=== PATIENT | female | born 1945 | race Caucasian/White ===

== ENCOUNTER 2016-12-12 02:12 | Emergency (ER) | payer OTHER, BC ==
[2016-12-12] MEDS ORDERED: diazePAM 5 MG TABLET PO ONE (03:35)
[2016-12-12] MEDS ORDERED: ONDANSETRON 4 MG/2 ML VIAL IVPB ONE (03:38)
[2016-12-12] MEDS ORDERED: FAMOTIDINE 20 MG/50 ML IVPB 50 ML IVPB ONE ×2 (03:38→03:51)
[2016-12-12] MEDS ORDERED: SODIUM CHLORIDE 1,000 ML IV STA (03:38)
--- NOTE | 2016-12-12 03:42 | PDOC ---
History of Present Illness <Nhan Villegas - Last Filed: 12/12/16 05:00> - General History Source: Patient Exam Limitations: No Limitations - History of Present Illness Initial Comments: 12/12/16 03:48 The patient is a 70 year old female with significant past medical history of hyperlipidemia who presents to the ED with 1 week of increasing right upper premolar pain. Patient had a dental procedure done about 1 week ago involving dental implant. She reports increasing pain to the right upper premolar, which she has been taking numerous ibuprofen and aleve for with minimal improvement. She has complaints of epigastric burning, nausea and indigestion that resulted in lack of appetite. Patient has an appointment with her dentist at 10:30 in the morning today. Patient also has complaints of back pain and chest wall pain that has been persistent for the past 2 weeks and is worsen upon deep inspiration. The patient denies fever, chills, cough, diaphoresis, lightheadedness, SOB, vomiting, and diarrhea. Allergies: NKDA Social History: No alcohol, tobacco, or drug use reported. Past Surgical History: None reported PCP: Dr. Litzy Zuluaga <Simona Rosa - Last Filed: 12/12/16 05:04> - General Stated Complaint: TOOTHACHE/BACK PAIN Time Seen by Provider: 12/12/16 03:33 Past History - Past Medical History Anemia: No Asthma: No Cancer: No Cardiac Disorders: No CVA: No COPD: No CHF: No Dementia: No Diabetes: No GI Disorders: Yes (CONSTIPATION, HEMORRHOIDS, REDUNDANT COLON) Disorders: No HTN: No Hypercholesterolemia: Yes Liver Disease: No Seizures: No Thyroid Disease: No - Surgical History Abdominal Surgery: No Appendectomy: No Cardiac Surgery: No Cholecystectomy: No Lung Surgery: No Neurologic Surgery: No Orthopedic Surgery: No - Immunization History Immunization Up to Date: Yes - Psycho/Social/Smoking Cessation Hx Anxiety: No Suicidal Ideation: No Smoking History: Never smoked Have you smoked in the past 12 months: No Number of Cigarettes Smoked Daily: 0 If you are a former smoker, when did you quit?: 50 YRS AGO Hx Alcohol Use: No Drug/Substance Use Hx: No Substance Use Type: None Hx Substance Use Treatment: No <Nhan Villegas - Last Filed: 12/12/16 05:00> <Simona Rosa - Last Filed: 12/12/16 05:04> - Past Medical History Allergies/Adverse Reactions: Allergies Allergy/AdvReac Type Severity Reaction Status Date / Time No Known Allergies Allergy Verified 08/06/15 22:05 Home Medications: Ambulatory Orders Atorvastatin Ca [Lipitor] 20 mg PO HS 11/23/14 Oxycodone HCl/Acetaminophen [Percocet 5-325 mg Tablet] 1 - 2 tab PO Q6H #20 tablet 08/07/15 Famotidine [Pepcid] 20 mg PO DAILY #7 tablet 12/12/16 Review of Systems - Review of Systems Able to Perform ROS?: Yes Comments:: 12/12/16 03:48 +lack of appetite, right upper premolar pain, epigastric burning, nausea, indigestion, chest wall pain, back pain Absent: fever, chills, cough, diaphoresis, lightheadedness, SOB, vomiting, and diarrhea. <Simona Rosa - Last Filed: 12/12/16 05:04> *Physical Exam - Physical Exam General Appearance: Yes: Nourished, Appropriately Dressed. No: Apparent Distress HEENT: positive: Normal ENT Inspection, Other (NO EVIDENCE OF ABCSESS) Neck: positive: Supple. negative: Tender, Carotid bruit Respiratory/Chest: positive: Chest Tender (AT PALPATION AND AP COMPRESSION), Lungs Clear, Normal Breath Sounds. negative: Respiratory Distress Cardiovascular: positive: Regular Rhythm, Regular Rate Gastrointestinal/Abdominal: positive: Normal Bowel Sounds, Soft. negative: Tender Integumentary: positive: Normal Color. negative: Rash Neurologic: positive: Fully Oriented, Alert, Normal Mood/Affect, Normal Response , Motor Strength 5/5 <Nhan Villegas - Last Filed: 12/12/16 05:00> ED Treatment Course - RADIOLOGY Radiology Studies Ordered: Category Date Time Status CHEST PA & LAT [RAD] Stat Radiology 12/12/16 03:37 Ordered <Nhan Villegas - Last Filed: 12/12/16 05:00> Medical Decision Making - Medical Decision Making 12/12/16 03:41 LIKELY M/S PAIN OVER USE OF NSAID'S>GASTRITIS DENTAL PAIN MUSCLE RELAXANT/PEPCID AND ZOFRAN/ CXR REASSESS 12/12/16 05:00 NORMAL CHEST FEELS BETTER AFTER MEDS WILL D/C ON MUSCLE RELAXANT/PEPCID/FOLLOW UP DDS TODAY <Nhan Villegas - Last Filed: 12/12/16 05:00> *DC/Admit/Observation/Transfer <Nhan Villegas - Last Filed: 12/12/16 05:00> - Attestations Scribe Attestion: 12/12/16 03:48 Documentation prepared by Simona Rosa, acting as director of medical education for Nhan Villegas MD <Simona Rosa - Last Filed: 12/12/16 05:04> Diagnosis at time of Disposition: Chest wall pain, Dyspepsia, Tooth pain - Discharge Dispostion Disposition: HOME - Prescriptions Prescriptions: Famotidine [Pepcid] 20 mg PO DAILY #7 tablet - Referrals Referrals: Litzy Zuluaga MD [Primary Care Provider] - Call tomorrow - Patient Instructions Additional Instructions: TAKE MEDICATIONS PRESCRIBED DO NOT TAKE ANY PAIN MEDICINE OTHER THAN TYLENOL PLENTY OF FLUIDS (WATER/GATORADE) BLAND DIET, ADVANCE TOLERATED EAT FREQUENT, SMALL MEALS THROUGHOUT THE DAY MAALOX, 30 ml 1/2 HOUR AFTER MEALS AND AT BED TIME RETURN IF FEVER, VOMITING, SEVERE PAIN
[2016-12-12] MEDS ORDERED: diazePAM 5 MG TABLET ONE (03:50)
[2016-12-12] MEDS ORDERED: ONDANSETRON 4 MG/2 ML VIAL ONE (03:52)
[2016-12-12 04:18] VITALS: BP 124/78; PULSE 78; TEMP 97.8; BMI 20.3
== END 2016-12-12 05:16 | disposition home or self-care (01) ==
LOC: JER 02:12
PROC: 3E033GC Introduction of Other Therapeutic Substance into Peripheral Vein, Percutaneous Approach (ICD-10-PCS; principal; 2016-12-12)
DX: R07.89 Other chest pain (principal); R10.13 Epigastric pain; K08.89 Other specified disorders of teeth and supporting structures
CPT/HCPCS: 71020-TC; 96365; 96375; 99281-25

== ENCOUNTER 2016-12-13 05:08 | Observation (INO) | payer OTHER, BC ==
[2016-12-13 05:24] VITALS: BMI 20.2
--- NOTE | 2016-12-13 06:12 | PDOC ---
[id number]: No Limitations - History of Present Illness Initial Comments: 12/13/16 06:13 The patient is a 70 year old female with past medical history of hyperlipidemia who presents to the ED with complaints of chest pain that began this morning. The patient states that she was seen in the ED last night for a toothache that she was having for three weeks for which she was taking clindamycin for. She was discharged home on flexeril and to follow up with her dentist. This morning , the patient woke up this morning and took her medications. Shortly after she began to experience a central chest tightness as well as back pain. She qualifies the pain as an ache between her shoulders. She denies any shortness of breath, lightheadedness, syncope, or blurred vision. She denies taking any aspirin after the onset of symptoms. She denies any recent illness, fever, chills, nausea, vomiting, diarrhea, cough, urinary symptoms. The patient adds that she has hx of heart disease on her mothers side. PCP: Litzy Lau <Ruchi Burt - Last Filed: 12/13/16 06:16> - History of Present Illness Initial Comments: 12/13/16 07:04 This is a 69yo F with chest pain that started this morning after taking medications for toothache. She reports a LEFT/retrosternal chest pain and radiation to the back; there are no other symptoms reported. She will be signed out to the oncoming MD who will follow up labs and disposition. She will likely be evaluated with two troponin rule out given the onset of the symptoms just prior to arrival. She reports no current symptoms at this time. <Guevara Ortiz - Last Filed: 01/13/17 06:31> - General Chief Complaint: Chest Pain Stated Complaint: CHEST DISCOMFORT Past History <Ruchi Burt - Last Filed: 12/13/16 06:16> - Past Medical History Anemia: No Asthma: No Cancer: No Cardiac Disorders: No CVA: No COPD: No CHF: No Dementia: No Diabetes: No GI Disorders: Yes (CONSTIPATION, HEMORRHOIDS, REDUNDANT COLON) Disorders: No HTN: No Hypercholesterolemia: Yes Liver Disease: No Psychiatric Problems: Yes (ANXIETY) Seizures: No Thyroid Disease: No - Surgical History Abdominal Surgery: No Appendectomy: No Cardiac Surgery: No Cholecystectomy: No Lung Surgery: No Neurologic Surgery: No Orthopedic Surgery: No - Immunization History Immunization Up to Date: Yes - Psycho/Social/Smoking Cessation Hx Anxiety: No Suicidal Ideation: No Smoking History: Never smoked Have you smoked in the past 12 months: No Number of Cigarettes Smoked Daily: 0 If you are a former smoker, when did you quit?: 50 YRS AGO Information on smoking cessation initiated: No Hx Alcohol Use: No Drug/Substance Use Hx: No Substance Use Type: None Hx Substance Use Treatment: No <Guevara Ortiz - Last Filed: 01/13/17 06:31> - Past Medical History Allergies/Adverse Reactions: Allergies Allergy/AdvReac Type Severity Reaction Status Date / Time No Known Allergies Allergy Verified 12/13/16 05:25 Home Medications: Ambulatory Orders Atorvastatin Ca [Lipitor] 20 mg PO HS 11/23/14 Oxycodone HCl/Acetaminophen [Percocet 5-325 mg Tablet] 1 - 2 tab PO Q6H #20 tablet 08/07/15 Cyclobenzaprine HCl [Flexeril 10 mg] 10 mg PO TID #20 tablet 12/12/16 Pantoprazole Sodium [Protonix -] 40 mg PO DAILY #30 tablet.ec 12/15/16 Review of Systems - Review of Systems Able to Perform ROS?: Yes Comments:: 12/13/16 06:13 GENERAL/CONSTITUTIONAL: No fever or chills. No weakness. HEAD, EYES, EARS, NOSE AND THROAT: No change in vision. No ear pain or discharge. No sore throat. CARDIOVASCULAR: Present: chest pain No shortness of breath. RESPIRATORY: No cough, wheezing, or hemoptysis. GASTROINTESTINAL: No nausea, vomiting, diarrhea or constipation. GENITOURINARY: No dysuria, frequency, or change in urination. MUSCULOSKELETAL: Present: upper back pain No joint or muscle swelling or pain. SKIN: No rash NEUROLOGIC: No headache, vertigo, loss of consciousness, or change in strength/ sensation. ENDOCRINE: No increased thirst. No abnormal weight change. HEMATOLOGIC/LYMPHATIC: No anemia, easy bleeding, or history of blood clots. ALLERGIC/IMMUNOLOGIC: No hives or skin allergy. All Other Systems: Reviewed and Negative <Ruchi Burt - Last Filed: 12/13/16 06:16> *Physical Exam - Vital Signs Last Vital Signs Temp Pulse Resp BP Pulse Ox 97.9 F 79 18 156/85 100 12/13/16 05:23 12/13/16 05:23 12/13/16 05:23 12/13/16 05:23 12/13/16 05:26 - Physical Exam Comments: 12/13/16 06:14 GENERAL: Awake, alert, and full oriented. Anxious appearing HEAD: No signs of trauma EYES: PERRLA, EOMI, sclera anicteric, conjunctiva clear ENT: Auricles normal inspection, hearing grossly normal, nares patent, oropharynx clear without exudates. Moist mucosa NECK: Normal ROM, supple, no lymphadenopathy, JVD, or masses LUNGS: Breath sounds equal, clear to auscultation bilaterally. No wheezes, and no crackles HEART: Regular rate and rhythm, normal S1 and S2, no murmurs, rubs or gallops ABDOMEN: Soft, nontender, normoactive bowel sounds. No guarding, no rebound. No masses EXTREMITIES: Normal range of motion, no edema. No clubbing or cyanosis. No cords, erythema, or tenderness NEUROLOGICAL: Cranial nerves II through XII grossly intact. Normal speech, normal gait SKIN: Warm, Dry, normal turgor, no rashes or lesions noted. <Ruchi Burt - Last Filed: 12/13/16 06:16> - Vital Signs Last Vital Signs Temp Pulse Resp BP Pulse Ox 97.9 F 79 18 156/85 100 12/13/16 05:23 12/13/16 05:23 12/13/16 05:23 12/13/16 05:23 12/13/16 05:26 <Guevara Ortiz - Last Filed: 01/13/17 06:31> Heart Score/ECG Review - ECG Intrepretation Comment:: 12/13/16 06:15 ECG obtained at 05:17 Normal sinus at 80 bpm with premature atrial complexes. Nonspecific T wave abnormality. No change from prior exam on 11/23/2014 <Ruchi Burt - Last Filed: 12/13/16 06:16> ED Treatment Course - LABORATORY CBC & Chemistry Diagram: 12/13/16 06:00 12/14/16 06:00 - RADIOLOGY Radiology Studies Ordered: Category Date Time Status CHEST PA & LAT [RAD] Stat Radiology 12/13/16 05:49 Ordered <Guevara Ortiz - Last Filed: 01/13/17 06:31> *DC/Admit/Observation/Transfer - Attestations Scribe Attestion: 12/13/16 06:16 Documentation prepared by Ruchi Burt, acting as medical art therapist for Guevara Ortiz MD. <Ruchi Burt - Last Filed: 12/13/16 06:16> <Guevara Ortiz - Last Filed: 01/13/17 06:31> Diagnosis at time of Disposition: Chest pain - Discharge Dispostion Disposition: HOME Condition at time of disposition: Stable - Prescriptions - Referrals
[2016-12-13 06:26] LABS: BASOPHIL 0.6 % (0-2.0); EOSINOPHIL 3.8 % (0-4.5); MCH 29.7 pg (25.7-33.7); MCHC 33.5 g/dl (32.0-36.0); MEAN CELL VOLUME 88.9 fl (80-96); MEAN PLT VOLUME 7.1 fl (7.5-11.1); NEUTROPHILS 61.1 % (42.8-82.8); PLATELET COUNT 267 K/MM3 (134-434); RDW 13.3 % (11.6-15.6); WHITE BLOOD COUNT 4.5 K/mm3 (4.0-10.0)
[2016-12-13 06:57] LABS: INR 1.04 (0.82-1.09); PROTHROMBIN TIME (PATIENT) 11.4 SEC (9.98-11.88)
[2016-12-13 07:10] LABS: MAGNESIUM 1.9 mg/dL (1.8-2.4); PHOSPHOROUS 3.2 mg/dL (2.5-4.9)
[2016-12-13 07:44] LABS: ALBUMIN 3.2 g/dl (3.4-5.0); ANION GAP 11 (8-16); BILIRUBIN,TOTAL 0.3 mg/dL (0.2-1.0); CALCIUM 8.8 mg/dL (8.5-10.1); CO2 28 mmol/L (21-32); GLUCOSE,RANDOM 97 mg/dL (74-106); SGOT/AST 14 U/L (15-37); SGPT/ALT 17 U/L (12-78); TOT PROT 6.4 g/dl (6.4-8.2)
[2016-12-13 07:47] LABS: ALK PHOS 64 U/L (45-117); TROPONIN I < 0.02 ng/ml (0.00-0.05)
--- NOTE | 2016-12-13 09:07 | PDOC ---
*Physical Exam - Vital Signs Last Vital Signs Temp Pulse Resp BP Pulse Ox 97.9 F 79 18 156/85 100 12/13/16 05:23 12/13/16 05:23 12/13/16 05:23 12/13/16 05:23 12/13/16 05:26 ED Treatment Course - LABORATORY CBC & Chemistry Diagram: 12/13/16 06:00 12/13/16 06:00 - ADDITIONAL ORDERS Additional order review: Laboratory Results 12/13/16 12/13/16 12/13/16 06:00 06:00 06:00 INR 1.04 Sodium Potassium Chloride Carbon Dioxide Anion Gap BUN Creatinine Creat Clearance w eGFR Random Glucose Lactic Acid 1.451 Calcium Phosphorus 3.2 Magnesium 1.9 Total Bilirubin AST ALT Alkaline Phosphatase Creatine Kinase Troponin I B-Natriuretic Peptide 78.18 Total Protein Albumin Lipase 316 12/13/16 06:00 INR Sodium 147 H Potassium 4.3 Chloride 108 H Carbon Dioxide 28 Anion Gap 11 BUN 21 H Creatinine 1.0 Creat Clearance w eGFR 54.50 Random Glucose 97 D Lactic Acid Calcium 8.8 Phosphorus Magnesium Total Bilirubin 0.3 D AST 14 L D ALT 17 D Alkaline Phosphatase 64 D Creatine Kinase 102 Troponin I < 0.02 B-Natriuretic Peptide Total Protein 6.4 Albumin 3.2 L Lipase 12/13/16 06:00 RBC 4.21 MCV 88.9 MCHC 33.5 RDW 13.3 MPV 7.1 L Neutrophils % 61.1 Lymphocytes % 27.4 Monocytes % 7.1 Eosinophils % 3.8 D Basophils % 0.6 Progress Note - Progress Note Progress Note: This patient was endorsed to me at [address] Ortiz pending cardiac enzymes. I have reevaluated the patient at this time. The patient is 70 years old and she has a history of hyperlipidemia and no history of high blood pressure but she is hypertensive today presents to the emergency department with 2 day history of intermittent chest pain that she describes as feeling tight. EKG is significant for flattened T waves in V5 and V6 as compared to prior EKG done in October 2014. Given her age, nonspecific EKG changes and history of hyperlipidemia and mild hypertension will bring into telemetry observation for serial cardiac markers and a stress test. *DC/Admit/Observation/Transfer Diagnosis at time of Disposition: Chest pain - Discharge Dispostion Condition at time of disposition: Stable Admit: Yes - Referrals Referrals: Litzy Zuluaga MD [Primary Care Provider] - - Patient Instructions - Post Discharge Activity
[2016-12-13] MEDS ORDERED: ASPIRIN 81 MG CHEWABLE TABLETS PO ONE (09:19)
[2016-12-13] MEDS ORDERED: ASPIRIN 325 MG TABLET ONE (09:20)
[2016-12-13] MEDS ORDERED: NITROGLYCERIN SUBLINGUAL 1/150 0.4 MG TAB SL PRN (09:35)
[2016-12-13] MEDS ORDERED: MAG HYDROX/AL HYDROX/SIMETH 30 ML UNIT-DOSE CUP PO PRN (10:13)
[2016-12-13] MEDS: ASPIRIN COATED 81 MG TABLET.EC PO SCH (10:15)
[2016-12-13] MEDS ORDERED: PANTOPRAZOLE SODIUM 100 ML IVPB ONE (10:45)
--- NOTE | 2016-12-13 11:00 | PN ---
Teaching Attending Note Name of Resident: Ras Nicolas ATTENDING PHYSICIAN STATEMENT I saw and evaluated the patient. I reviewed the resident's note and discussed the case with the resident. I agree with the resident's findings and plan as documented. SUBJECTIVE: 70 year old female that presents to the ED complaining of mid sternal chest pain , 8/10 in intensity , pressure like, that started inbetween her shoulder blades and radiated to her mid chest . Episode occurred shortly after taking Flexeril and Clindamycin PO which was prescribed by her dentist. She had tooth extraction 3 weeks ago continued having severe pain,completed course of amoxicillin , was re evaluated by her dentist 3 days ago and placed on clindamycin.Throughout this time reported frequent intake of motrin for pain control . She was seen in ED yesterday with epigastric pain and sent home with Pepcid. Unable to tolerate PO due to pain OBJECTIVE: Vital Signs - 24 hr 12/13/16 12/13/16 12/13/16 05:23 05:26 09:26 Temperature 97.9 F 97.6 F Pulse Rate 79 Pulse Rate [ 79 Apical] Respiratory 18 18 Rate Blood Pressure 156/85 Blood Pressure 144/82 [Left Arm] O2 Sat by Pulse 100 100 97 Oximetry (%) Oral exam revealed s/p righgright 5th molar s/p extraction, there is a bone graft ? in the socket , gum erythema and tenderness but no abscess palpated . Abnormal Lab Results 12/13/16 12/13/16 06:00 06:00 MPV 7.1 L Sodium 147 H Chloride 108 H BUN 21 H AST 14 L D Albumin 3.2 L ASSESSMENT AND PLAN: 1. Chest pain - history of hyperlipidemia - trend enzymes - ASA - stress test 2. Maxillar webb s/p tooth extraction- unlikely infected.. - XR maxilar r/o abscess - stat clindamycin IV once - pain control with IV morphine as needed 3. Abdominal /Epigastric pain - gastritis - PPIs x 2 weeks , if no improvement - EGD 4. Hypernatremia - mild , likely hypovolemic - IVF
--- NOTE | 2016-12-13 12:02 | HP ---
CHIEF COMPLAINT: chest pain PCP: Litzy Zuluaga HISTORY OF PRESENT ILLNESS: 70 year old female with pmh of HPLD, GERD, no HTN/DM/Cardiac History presented to the ED with complaint of Chest pain. the chest pain started this morning after taking her am pills (clindamycin and flexeril). the pain was sharp, stabbing, 8/10, substenal, constant, going straight to back, lasting more than 30 mn. At the time of the chest pain, patient was feeling anxious and was crying due to the severity of the pain, there was no shortness of breath, no palpiation, no diaphoresis, no feleling of impending doom, no lightheadedness, no syncope. Pt has been having intermittent back pain, midback, lasting 30mn relived by ibuprofen which she uses at least 4 times per day for the last 3 weeks. Pt admitted to have a history of heartburn and was recently seen by Dr Garcia who prescribed a medication to take every morning before meal, unfortunately she has has not been taking it and does not recall the name. she complained of severe epigastric pain with food. Pt also complained of right molar tooth infection post extraction. ER course was notable for: (1) ASA 324 mg Po, protonix Iv, NS at 75ml/h (2) CXR, labs Recent Travel: PAST MEDICAL HISTORY: HPLD, GERD, Constipation, no HTN/DM/Cardiac History PAST SURGICAL HISTORY: Early cervical cancer at 26 followed by Hysterectomy at 26, Ovarian Cyst at 21 Social History: Smoking:denies Alcohol:deneis Drugs: denies have 3 daughters luve with Retired used work in medical office in [place] Family History: non contributory Allergies No Known Allergies Allergy (Verified 12/13/16 05:25) HOME MEDICATIONS: Home Medications Medication Instructions Recorded Atorvastatin Ca [Lipitor] 20 mg PO HS 11/23/14 Oxycodone HCl/Acetaminophen 1 - 2 tab PO Q6H #20 tablet 08/07/15 [Percocet 5-325 mg Tablet] Cyclobenzaprine HCl [Flexeril 10 10 mg PO TID #20 tablet 12/12/16 mg] REVIEW OF SYSTEMS CONSTITUTIONAL: Absent: fever, chills, diaphoresis, generalized weakness, malaise, loss of appetite, weight change HEENT: Absent: rhinorrhea, nasal congestion, throat pain, throat swelling, difficulty swallowing, mouth swelling, ear pain, eye pain, visual changes CARDIOVASCULAR: chest pain Absent: , syncope, palpitations, irregular heart rate, lightheadedness, peripheral edema RESPIRATORY: Absent: cough, shortness of breath, dyspnea with exertion, orthopnea, wheezing, stridor, hemoptysis GASTROINTESTINAL:abdominal pain epigastric Absent:, abdominal distension, nausea, vomiting, diarrhea, constipation, melena , hematochezia GENITOURINARY: Absent: dysuria, frequency, urgency, hesitancy, hematuria, flank pain, genital pain MUSCULOSKELETAL: back pain Absent: myalgia, arthralgia, joint swelling, neck pain SKIN: Absent: rash, itching, pallor HEMATOLOGIC/IMMUNOLOGIC: Absent: easy bleeding, easy bruising, lymphadenopathy, frequent infections ENDOCRINE: Absent: unexplained weight gain, unexplained weight loss, heat intolerance, cold intolerance NEUROLOGIC: Absent: headache, focal weakness or paresthesias, dizziness, unsteady gait, seizure, mental status changes, bladder or bowel incontinence PSYCHIATRIC: Absent: anxiety, depression, suicidal or homicidal ideation, hallucinations. PHYSICAL EXAMINATION Vital Signs - 24 hr 12/13/16 10:52 Temperature 97.6 F Pulse Rate 79 Respiratory 20 Rate Blood Pressure 144/82 O2 Sat by Pulse 97 Oximetry (%) GENERAL: Awake, alert, and fully oriented, in no acute distress. HEAD: Normal with no signs of trauma. EYES: Pupils equal, round and reactive to light, extraocular movements intact, sclera anicteric, conjunctiva clear. No lid lag. EARS, NOSE, THROAT: Ears normal, nares patent, oropharynx clear without exudates. Moist mucous membranes. right upper molar extraction with black base in crater, with gingival redness and swelling and tenderness NECK: Normal range of motion, supple without lymphadenopathy, JVD, or masses. LUNGS: Breath sounds equal, clear to auscultation bilaterally. No wheezes, and no crackles. No accessory muscle use. HEART: Regular rate and rhythm, normal S1 and S2 without murmur, rub or gallop. ABDOMEN: Soft, nontender, not distended, normoactive bowel sounds, no guarding, no rebound, no masses. No hepatomegaly or splenomegaly. MUSCULOSKELETAL: Normal range of motion at all joints. No bony deformities or tenderness. No CVA tenderness. UPPER EXTREMITIES: 2+ pulses, warm, well-perfused. No cyanosis. No clubbing. No peripheral edema. LOWER EXTREMITIES: 2+ pulses, warm, well-perfused. No calf tenderness. No peripheral edema. NEUROLOGICAL: Cranial nerves II-XII intact. Normal speech. Normal gait. PSYCHIATRIC: Cooperative. Good eye contact. Appropriate mood and affect. SKIN: Warm, dry, normal turgor, no rashes or lesions noted, normal capillary refill. CBC, BMP 12/13/16 06:00 12/13/16 06:00 Laboratory Tests 12/13/16 12/13/16 12/13/16 06:00 06:00 06:00 Lactic Acid 1.451 Calcium 8.8 Phosphorus 3.2 Magnesium 1.9 Total Bilirubin 0.3 D AST 14 L D ALT 17 D Alkaline Phosphatase 64 D Creatine Kinase Troponin I < 0.02 B-Natriuretic Peptide 78.18 Lipase 316 12/13/16 11:25 Lactic Acid Calcium Phosphorus Magnesium Total Bilirubin AST ALT Alkaline Phosphatase Creatine Kinase Pending Troponin I Pending B-Natriuretic Peptide Lipase CXR 12/12/16: No evidence of active pulmonary disease. ASSESSMENT 70 year old female with pmh of HPLD, GERD, no HTN/DM/Cardiac History presented to the ED with complaint of Chest pain Always consider ACS, however pt has limited risk factors except for HPLD and age , description of chest pain is sharp and stabbing, No EKG changes and negative troponins so far makes ACS less likely. Pt has h/o of GERD with epigastric pain with food ingestion which could be a source of chest pain, also consider GI causes such as ulcer, gastritis, duodenitis. Always consider PNA as cause of chest pain but no cough, fever, sputum, negative CXR. Consider PE as cause of chest pain but very low likelihood. Consider pancreatitis but negative lipase, no epigatsric tenderness on physical exam. musculoskeletal pain is always a consideration in the setting of heavy lifting at home and recent back pain Impression Atypical Chest pain r/o ACS most likely from GI origins or musculoskeletal origins PLAN Atypical Chest pain r/o ACS HEART score 4-5, moderate risk Serial Ekg Serial cardiac profile TSh Lipid profile HgA1c Cardiology consulted Maalox PRN Protonix 40mg Po daily Atorvastatin 20 mg Po qhs Aspirin 81mg Po qd Maxillary pain s/p tooth extraction r/o Infection and abscess resume Clindamycin once family bring prescription F/u with outpatient dentist Xray maxillary Dehydration Na 147 BUN/cr 21:1 Water deficit is 1.46 NS at 75 ml/h Consider switching to free fluid after 1 liters FEN Fluid: NS at 75 ml/h Electrolytes: hypernatremia Nutrition: cardiac diet DVT prophylaxis: early ambulation, consider SCD Disposition: keep in Observation telemetry pending serial cardiac profile Visit type - Emergency Visit Emergency Visit: Yes ED Registration Date: 12/13/16 Care time: The patient presented to the Emergency Department on the above date and was hospitalized for further evaluation of their emergent condition. - New Patient This patient is new to me today: Yes Date on this admission: 12/13/16 - Critical Care Critical Care patient: No
[2016-12-13] MEDS: SODIUM CHLORIDE 1,000 ML IV SCH (12:05)
[2016-12-13 12:14] LABS: TROPONIN I < 0.02 ng/ml (0.00-0.05)
[2016-12-13] MEDS ORDERED: ACETAMINOPHEN 325 MG TABLET (FP) PO PRN (12:47)
[2016-12-13] MEDS: morphine CARPU-JECT 2 MG/1 ML DISP.SYRIN IVPUSH PRN ×2 (13:52→18:34)
[2016-12-13] MEDS ORDERED: PANTOPRAZOLE SODIUM 40 MG in SODIUM CHLORIDE 100 ML IVPB ONE (13:57)
[2016-12-13] MEDS ORDERED: CLINDAMYCIN 600MG PREMIX IVPB 50 ML IVPB ONE (14:35)
[2016-12-13] MEDS: ATORVASTATIN CA 20 MG TABLET (FP) PO SCH (21:02)
[2016-12-13 21:05] LABS: TROPONIN I < 0.02 ng/ml (0.00-0.05)
[2016-12-14] MEDS: morphine CARPU-JECT 2 MG/1 ML DISP.SYRIN IVPUSH PRN ×2 (00:49→05:55)
[2016-12-14] MEDS: SODIUM CHLORIDE 1,000 ML IV SCH ×2 (05:23→10:00)
--- NOTE | 2016-12-14 08:01 | PN ---
Progress Note, Physician - Current Medication List Current Medications: Active Medications Acetaminophen (Tylenol -) 650 mg PO Q6H PRN PRN Reason: FEVER OR PAIN Al Hydroxide/Mg Hydroxide (Mylanta Oral Suspension -) 30 ml PO Q6H PRN PRN Reason: DYSPEPSIA Aspirin (Ecotrin -) 81 mg PO DAILY [facility] Last Admin: 12/13/16 10:15 Dose: Not Given Atorvastatin Calcium (Lipitor -) 20 mg PO HS [facility] Last Admin: 12/13/16 21:02 Dose: 20 mg Sodium Chloride (Normal Saline -) 1,000 mls @ 75 mls/hr IV ASDIR LORENZO Last Admin: 12/14/16 05:23 Dose: 75 mls/hr Pantoprazole Sodium 40 mg/ (Sodium Chloride) 100 mls @ 200 mls/hr IVPB ONCE ONE Stop: 12/13/16 14:26 Morphine Sulfate (Morphine Injection -) 1 mg IVPUSH Q4H PRN PRN Reason: PAIN Last Admin: 12/14/16 05:55 Dose: 1 mg - Objective Vital Signs: Vital Signs Temperature 98.5 F 12/14/16 06:00 Pulse Rate 78 12/14/16 06:00 Respiratory Rate 18 12/14/16 06:00 Blood Pressure 139/77 12/14/16 06:00 O2 Sat by Pulse Oximetry (%) 98 12/14/16 05:00 Eyes: Yes: WNL, Conjunctiva Clear HENT: Yes: WNL, Atraumatic, Normocephalic Neck: Yes: WNL, Supple, Trachea Midline Cardiovascular: Yes: WNL, Regular Rate and Rhythm Respiratory: Yes: WNL, Regular, CTA Bilaterally Gastrointestinal: Yes: WNL, Normal Bowel Sounds Musculoskeletal: Yes: WNL Extremities: Yes: WNL Edema: No Integumentary: Yes: WNL Neurological: Yes: WNL, Alert, Oriented ...Motor Strength: WNL Psychiatric: Yes: WNL Labs: INR, PTT INR 1.04 (0.82-1.09) 12/13/16 06:00 Impression/Plan Impression/Plan: 71 year old woman with HLD, GERD who presented to ED complaining of mid- epigastric/substernal chest discomfort -pt states that she was recently taking large amounts of ibuprofen for tooth pain and has a history of GERD -pt also states that she occasionally has palpitations and chest tightness and has episodes of NSVT on telemetry here on this admission -send for nuclear stress test -PPI for GERD symptoms -follow up cardiology consult Visit type - Emergency Visit Emergency Visit: Yes ED Registration Date: 12/13/16 Care time: The patient presented to the Emergency Department on the above date and was hospitalized for further evaluation of their emergent condition. - New Patient This patient is new to me today: Yes Date on this admission: 12/14/16 - Critical Care Critical Care patient: No
[2016-12-14 08:37] LABS: ANION GAP 7 (8-16); CALCIUM 8.3 mg/dL (8.5-10.1); CO2 30 mmol/L (21-32); CREATININE 0.7 mg/dL (0.55-1.02); GLUCOSE,RANDOM 92 mg/dL (74-106)
[2016-12-14 08:41] LABS: TROPONIN I < 0.02 ng/ml (0.00-0.05)
[2016-12-14] MEDS ORDERED: ONDANSETRON 4 MG/2 ML VIAL IVPUSH PRN (09:14)
[2016-12-14] MEDS: ASPIRIN COATED 81 MG TABLET.EC PO SCH (10:00)
--- NOTE | 2016-12-14 11:24 | EKG ---
Test Reason : Blood Pressure : / mmHG Vent. Rate : 080 BPM Atrial Rate : 080 BPM P-R Int : 140 ms QRS Dur : 080 ms QT Int : 382 ms P-R-T Axes : 071 002 067 degrees QTc Int : 440 ms SINUS RHYTHM WITH PREMATURE ATRIAL COMPLEXES NONSPECIFIC T WAVE ABNORMALITY ABNORMAL ECG WHEN COMPARED WITH ECG OF 23-NOV-2014 13:49, PREMATURE ATRIAL COMPLEXES ARE NOW PRESENT Confirmed by RENNY BARNEY MD ([id number]) on 12/14/2016 11:24:45 AM Referred By: Confirmed By:RENNY BARNEY MD
--- NOTE | 2016-12-14 11:29 | EKG ---
Test Reason : Blood Pressure : / mmHG Vent. Rate : 082 BPM Atrial Rate : 082 BPM P-R Int : 130 ms QRS Dur : 080 ms QT Int : 358 ms P-R-T Axes : 059 020 078 degrees QTc Int : 418 ms NORMAL SINUS RHYTHM NONSPECIFIC T WAVE ABNORMALITY ABNORMAL ECG WHEN COMPARED WITH ECG OF 13-DEC-2016 05:17, PREMATURE ATRIAL COMPLEXES ARE NO LONGER PRESENT Confirmed by RENNY BARNEY MD ([id number]) on 12/14/2016 11:29:25 AM Referred By: Confirmed By:RENNY BARNEY MD
--- NOTE | 2016-12-14 13:01 | CONSULT ---
Consult - text type - Consultation Consultation Note: Cardiology 70 year old female with pmh of HPLD, GERD, presented to the ED with complaint of Chest pain. the chest pain started this morning after taking her am pills ( clindamycin and flexeril). Pt also complains of right molar tooth infection post extraction. PAST MEDICAL HISTORY: HPLD, GERD, Constipation, no HTN/DM/Cardiac History PAST SURGICAL HISTORY: Early cervical cancer at 26 followed by Hysterectomy at 26, Ovarian Cyst at 21 Social History: Smoking:denies Alcohol:deneis Drugs: denies have 3 daughters luve with Retired used work in medical office in [place] Family History: non contributory Allergies No Known Allergies Allergy (Verified 12/13/16 05:25) PE: vitals stable normal cardio-pulmonary exam abdomen soft no leg edema Impression: atypical chest pains, no evidence of DE ? esophagitis due to extensive intake of Ibuprofen EKG NSR non-specific T changes Rec: Nuclear stress test will re-evaluate after test reports tomorrow ? GI evaluation
[2016-12-14] MEDS: PANTOPRAZOLE 40 MG TABLET (FP) PO SCH (16:08)
[2016-12-14] MEDS: CLINDAMYCIN 600MG PREMIX IVPB 50 ML IVPB SCH (17:35)
[2016-12-14] MEDS ORDERED: DOCUSATE SODIUM 100 MG CAPSULE (FP) PO ONE (21:04)
[2016-12-14] MEDS ORDERED: SENNOSIDES 8.6MG TABLET (FP) PO PRN (21:04)
[2016-12-14] MEDS: ATORVASTATIN CA 20 MG TABLET (FP) PO SCH (21:35)
[2016-12-15] MEDS: BENZOCAINE 20 % GEL 9 GM TUBE MM SCH ×2 (00:48→10:00)
[2016-12-15] MEDS: CLINDAMYCIN 600MG PREMIX IVPB 50 ML IVPB SCH ×2 (01:51→13:26)
[2016-12-15] MEDS ORDERED: DIPYRIDAMOLE STRESS TEST IVPB ONE (10:00)
[2016-12-15] MEDS ORDERED: WATER IVPB ONE (10:00)
[2016-12-15] MEDS: PANTOPRAZOLE 40 MG TABLET (FP) PO SCH ×2 (10:00→13:27)
[2016-12-15] MEDS ORDERED: DEXTROSE 5% IVPB ONE (10:00)
[2016-12-15] MEDS: ASPIRIN COATED 81 MG TABLET.EC PO SCH ×2 (10:00→13:27)
[2016-12-15] MEDS ORDERED: CLINDAMYCIN HCL 300 MG CAPSULE PO SCH (14:00)
[2016-12-15] MEDS ORDERED: CLINDAMYCIN HCL 150 MG CAPSULE (FP) PO SCH (14:24)
[2016-12-15 15:29] VITALS: BP 128/77; PULSE 92; TEMP 98.2
--- NOTE | 2016-12-15 16:04 | DS ---
Physical Examination Vital Signs: Vital Signs Temperature 98.2 F 12/15/16 15:25 Pulse Rate 92 H 12/15/16 15:25 Respiratory Rate 20 12/15/16 15:25 Blood Pressure 128/77 12/15/16 15:25 O2 Sat by Pulse Oximetry (%) 97 12/15/16 05:00 Labs: CBC, BMP 12/14/16 06:00 Discharge Summary Reason For Visit: CHEST PAIN Current Active Problems Chest pain (Acute) Hospital Course: 71 year old woman with HLD, GERD who presented to ED complaining of mid- epigastric/substernal chest discomfort -pt states that she was recently taking large amounts of ibuprofen for tooth pain and has a history of GERD -pt also states that she occasionally has palpitations and chest tightness and has episodes of NSVT on telemetry here on this admission -sent for nuclear stress test which shows no ischemia -PPI for GERD symptoms -follow up PMD as an outpatient I spent greater than 40 minutes preparing this discharge Condition: Stable - Instructions Referrals: Litzy Zuluaga MD [Primary Care Provider] - 1 Week - Home Medications Comprehensive Discharge Medication List: Ambulatory Orders Atorvastatin Ca [Lipitor] 20 mg PO HS 11/23/14 Oxycodone HCl/Acetaminophen [Percocet 5-325 mg Tablet] 1 - 2 tab PO Q6H #20 tablet 08/07/15 Cyclobenzaprine HCl [Flexeril 10 mg] 10 mg PO TID #20 tablet 12/12/16 Pantoprazole Sodium [Protonix -] 40 mg PO DAILY #30 tablet.ec 12/15/16 This patient is new to me today: No Emergency Visit: Yes ED Registration Date: 12/13/16 Care time: The patient presented to the Emergency Department on the above date and was hospitalized for further evaluation of their emergent condition. Critical Care patient: No - Discharge Referral Referred to [facility] No
== END 2016-12-15 17:23 | disposition home or self-care (01) ==
LOC: JER 05:08 → JERBED 09:32 → UNDOADMIN 09:32 → J4W 11:15
PROVIDERS: ADMIT Internal Medicine; ATTEND Internal Medicine
DX: R07.89 Other chest pain (principal); E78.5 Hyperlipidemia, unspecified; F41.8 Other specified anxiety disorders; R68.84 Jaw pain; K29.60 Other gastritis without bleeding; E87.0 Hyperosmolality and hypernatremia; K21.9 Gastro-esophageal reflux disease without esophagitis; K59.09 Other constipation; I47.2 Ventricular tachycardia
CPT/HCPCS: 36415; 70140-TC; 78452-TC; 80048; 80053; 82550; 83036; 83605; 83690; 83735; 83880; 84100; 84484; 85025; 85610; 86850; 86900; 86901; 93005; 93010; 93017; 93306-TC; 99285-25; A9502; G0378

== ENCOUNTER 2017-10-21 03:21 | Emergency (ER) | payer OTHER, BC ==
[2017-10-21 03:59] VITALS: BP 163/76; PULSE 88; TEMP 97.7; BMI 20.3
[2017-10-21] MEDS ORDERED: PANTOPRAZOLE SODIUM 40 MG VIAL IVPUSH ONE (04:35)
[2017-10-21] MEDS ORDERED: ACETAMINOPHEN 1000 MG/100 ML VIAL (NON FORMULARY) IVPB ONE (04:35)
[2017-10-21] MEDS ORDERED: SODIUM CHLORIDE 0.9% 1000 ML INFUS.BAG IV ONE (04:35)
--- NOTE | 2017-10-21 04:36 | PDOC ---
History of Present Illness - General Chief Complaint: Pain Stated Complaint: PAIN Time Seen by Provider: 10/21/17 04:21 - History of Present Illness Initial Comments: 10/21/17 04:35 CHIEF COMPLAINT: tooth pain, back pain, midsternal/epigastric burning HISTORY OF PRESENT ILLNESS: 71 yo F with hx of hyperlipidemia, ovarian cysts s/ op hysterectomy presents to ED with tooth pain s/p dental visit today accompanied by epigastric and midsternal "burning" and back pain. Patient states "the last time I went to the dentist the same thing happened, and I haven 't been able to sleep in 3 days because of my tooth pain." Patient states her dentist said it looked like she had "gangrene" and she was prescribed amoxicillin today. She was also given ibuprofen for pain "by my daughter who is a nurse." Patient denies any chest pain, shortness of breath, palpitatoins, fever, vomiting, diarrhea. PAST MEDICAL HISTORY: as per HPI FAMILY HISTORY: Denies SOCIAL HISTORY: Denies tobacco, alcohol, illicit drug use. SURGICAL HISTORY: Denies ALLERGIES: No known drug allergies REVIEW OF SYSTEMS General/Constitutional: Denies fever or chills. Denies weakness, weight change. HEENT: Denies change in vision. Denies ear pain or discharge. Denies sore throat. Cardiovascular: Denies chest pain or shortness of breath. Respiratory: Denies cough, wheezing, or hemoptysis. Gastrointestinal: Epigastric burning radiating to midsternum. Denies nausea, vomiting, diarrhea or constipation. Denies rectal bleeding. Genitourinary: Denies dysuria, frequency, or change in urination. Musculoskeletal: Denies joint or muscle swelling or pain. Denies neck or back pain. Skin and breasts: Denies rash or easy bruising. Neurologic: Denies headache, vertigo, loss of consciousness, or loss of sensation. PHYSICAL EXAM General Appearance: Well-appearing, appropriately dressed. No apparent distress. HEENT: EOMI, PERRLA, normal ENT inspection, normal voice, TMs normal, pharynx normal. No conjunctival pallor. No photophobia, scleral icterus. Respiratory/Chest: Lungs CTAB. No shortness of breath, chest tenderness, respiratory distress, accessory muscle use. No crackles, rales, rhonchi, stridor , wheezing, dullness Cardiovascular: RRR. S1, S2. Gastrointestinal/Abdominal: Normal bowel sounds. Abdomen soft, non-distended. No tenderness or rebound tenderness. No organomegaly, pulsatile mass, guarding , hernia, hepatomegaly, splenomegaly. Musculoskeletal/Extremities: Normal inspection. FROM of all extremities, normal capillary refill. Pelvis Stable. No CVA tenderness. No tenderness to extremities, pedal edema, swelling, erythema or deformity. Integumentary: Appropriate color, dry, warm. No cyanosis, erythema, jaundice or rash Neurologic: chocolate temperer II-XII intact. Fully oriented, alert. Appropriate mood/affect. Motor strength 5/5. No appreciable EOM palsy, facial droop or sensory deficit. Past History - Past Medical History Allergies/Adverse Reactions: Allergies Allergy/AdvReac Type Severity Reaction Status Date / Time No Known Allergies Allergy Verified 10/21/17 03:57 Home Medications: Ambulatory Orders Atorvastatin Ca [Lipitor] 20 mg PO HS 11/23/14 Oxycodone HCl/Acetaminophen [Percocet 5-325 mg Tablet] 1 - 2 tab PO Q6H #20 tablet 08/07/15 Cyclobenzaprine HCl [Flexeril 10 mg] 10 mg PO TID #20 tablet 12/12/16 Pantoprazole Sodium [Protonix -] 40 mg PO DAILY #30 tablet.ec 12/15/16 Pantoprazole Sodium [Protonix] 40 mg PO DAILY #20 tablet. 10/21/17 Anemia: No Asthma: No Cancer: No Cardiac Disorders: No CVA: No COPD: No CHF: No Dementia: No Diabetes: No GI Disorders: Yes (CONSTIPATION, HEMORRHOIDS, REDUNDANT COLON) Disorders: No HTN: No Hypercholesterolemia: Yes Liver Disease: No Psychiatric Problems: Yes (ANXIETY) Seizures: No Thyroid Disease: No - Surgical History Abdominal Surgery: No Appendectomy: No Cardiac Surgery: No Cholecystectomy: No Lung Surgery: No Neurologic Surgery: No Orthopedic Surgery: No - Immunization History Immunization Up to Date: Yes - Suicide/Smoking/Psychosocial Hx Smoking History: Unknown if ever smoked Have you smoked in the past 12 months: No Number of Cigarettes Smoked Daily: 0 If you are a former smoker, when did you quit?: 50 YRS AGO Information on smoking cessation initiated: No Hx Alcohol Use: No Drug/Substance Use Hx: No Substance Use Type: None Hx Substance Use Treatment: No *Physical Exam - Vital Signs Last Vital Signs Temp Pulse Resp BP Pulse Ox 97.7 F 88 14 163/76 97 10/21/17 03:57 10/21/17 03:57 10/21/17 03:57 10/21/17 03:57 10/21/17 03:57 Medical Decision Making - Medical Decision Making 10/21/17 04:39 71 yo F with hx of hyperlipidemia, ovarian cysts s/op hysterectomy presents to ED with tooth pain s/p dental visit today accompanied by epigastric and midsternal "burning" and back pain. -IVF, Tylenol, Pepcid, Protonix R Superior alveolar block performed. Patient expressed immediate relief. Patient also reports that her epigastric pain has resolved. Advised patient to take medication as prescribed and follow up with dentist in the morning. Advised patient of signs and symptoms for return to ED. Patient verbalized understanding and agrees to plan. *DC/Admit/Observation/Transfer Diagnosis at time of Disposition: Pain, dental, GERD (gastroesophageal reflux disease) - Discharge Dispostion Disposition: HOME Condition at time of disposition: Stable Admit: No - Prescriptions Prescriptions: Pantoprazole Sodium [Protonix] 40 mg PO DAILY #20 tablet.dr - Referrals - Patient Instructions Printed Discharge Instructions: DI for Gastroesophageal Reflux Disease (GERD), DI for Dental Pain Additional Instructions: As discussed, please follow up with your dentist tomorrow for further management of your tooth pain. Do not take ibuprofen at such a high dose; you may want to discuss with your dentist getting a prescription for a different pain medication. If you develop chest pain, shortness of breath, palpitations, fever, vomiting, diarrhea, or any new or worsening symptoms, please return to the ER. - Post Discharge Activity
[2017-10-21] MEDS ORDERED: PANTOPRAZOLE SODIUM 40 MG VIAL ONE (05:00)
[2017-10-21] MEDS ORDERED: ACETAMINOPHEN INJECTION 100 ML IVPB ONE (05:00)
[2017-10-21] MEDS ORDERED: FAMOTIDINE 20 MG/50 ML IVPB 20 MG/50 ML MG IVPB ONE (05:00)
[2017-10-21] MEDS ORDERED: FAMOTIDINE IV 20 MG/12 ML VIAL IVPUSH ONE (05:32)
--- NOTE | 2017-10-21 05:47 | PDOC ---
*Physical Exam - Vital Signs Last Vital Signs Temp Pulse Resp BP Pulse Ox 97.7 F 88 14 163/76 97 10/21/17 03:57 10/21/17 03:57 10/21/17 03:57 10/21/17 03:57 10/21/17 03:57 ED Treatment Course - Medications Given in the ED: ED Medications Discontinued Medications Generic Name Dose Route Start Last Admin Trade Name Martha PRN Reason Stop Dose Admin Acetaminophen 1,000 mg 10/21/17 04:35 10/21/17 05:39 Ofirmev Injection - IVPB 10/21/17 04:36 1,000 mg ONCE ONE Administration Famotidine 20 mg in 12 mls @ 144 mls/hr 10/21/17 05:32 10/21/17 05:40 Pepcid 20 Mg/12 Ml Push IVPUSH 10/21/17 05:36 144 mls/hr ONCE ONE Administration Pantoprazole Sodium 40 mg 10/21/17 04:35 10/21/17 05:40 Protonix Iv IVPUSH 10/21/17 04:36 40 mg ONCE ONE Administration Sodium Chloride 500 ml 10/21/17 04:35 10/21/17 05:39 Normal Saline - IV 10/21/17 04:36 500 ml ONCE ONE Administration Medical Decision Making - Medical Decision Making 10/21/17 05:47 agree with care from TYSON Mojica *DC/Admit/Observation/Transfer Diagnosis at time of Disposition: Pain, dental, GERD (gastroesophageal reflux disease) - Discharge Dispostion Disposition: HOME Condition at time of disposition: Stable - Prescriptions Prescriptions: Pantoprazole Sodium [Protonix] 40 mg PO DAILY #20 tablet.dr - Referrals - Patient Instructions Printed Discharge Instructions: DI for Gastroesophageal Reflux Disease (GERD), DI for Dental Pain Additional Instructions: As discussed, please follow up with your dentist tomorrow for further management of your tooth pain. Do not take ibuprofen at such a high dose; you may want to discuss with your dentist getting a prescription for a different pain medication. If you develop chest pain, shortness of breath, palpitations, fever, vomiting, diarrhea, or any new or worsening symptoms, please return to the ER. - Post Discharge Activity
[2017-10-21] MEDS ORDERED: LIDOCAINE HCL 1%, 10 MG/ML (50 mL VIAL) SQ ONE (05:51)
[2017-10-21] MEDS ORDERED: BUPIVACAINE HCL/PF (5 MG/ML) 30 ML VIAL IJ ONE (05:52)
[2017-10-21] MEDS ORDERED: LIDOCAINE HCL 1%, 10 MG/ML (20ML VIAL) ONE (05:57)
[2017-10-21] MEDS ORDERED: BUPIVACAINE HCL/PF 0.5% (5MG/ML) 10 ML VIAL ONE (05:57)
[2017-10-21] MEDS ORDERED: FAMOTIDINE IV 20 MG/12 ML VIAL IVPUSH SCH (10:00)
== END 2017-10-21 06:41 | disposition home or self-care (01) ==
LOC: JER 03:21
PROC: 3E033GC Introduction of Other Therapeutic Substance into Peripheral Vein, Percutaneous Approach (ICD-10-PCS; principal; 2017-10-21)
PROC: 3E033GC Introduction of Other Therapeutic Substance into Peripheral Vein, Percutaneous Approach (ICD-10-PCS; 2017-10-21)
PROC: 3E033NZ Introduction of Analgesics, Hypnotics, Sedatives into Peripheral Vein, Percutaneous Approach (ICD-10-PCS; 2017-10-21)
PROC: 3E013BZ Introduction of Anesthetic Agent into Subcutaneous Tissue, Percutaneous Approach (ICD-10-PCS; 2017-10-21)
PROC: 3E013BZ Introduction of Anesthetic Agent into Subcutaneous Tissue, Percutaneous Approach (ICD-10-PCS; 2017-10-21)
DX: K08.89 Other specified disorders of teeth and supporting structures (principal); K21.9 Gastro-esophageal reflux disease without esophagitis
CPT/HCPCS: 99284-25

== ENCOUNTER 2017-10-29 08:01 | Emergency (ER) | payer OTHER, BC ==
[2017-10-29 08:22] VITALS: BP 122/63; PULSE 66; TEMP 99.1; BMI 20.3
--- NOTE | 2017-10-29 09:01 | PDOC ---
History of Present Illness <David Skaggs - Last Filed: 10/29/17 13:13> - History of Present Illness Initial Comments: 71 yo F with hx of hyperlipidemia, ovarian cysts s/p hysterectomy, vertigo, and GERD presenting with episode of syncope. Patient states that she was seen for some gingival swelling a week prior and a dental block was performed and she was given amoxicillin which she recently completed. During the week she had a slightly worsening cough with some myalgias yesterday. States that symptoms started a week prior but worsened over the last few days. She took her meclizine yesterday to help with her dizziness. Today she did not take meclizine and was having severee vertiginous symptoms. While she was on the toilet her nausea associated with her vertigo caused her one episode of NBNB vomit after which she felt more lightheaded and syncopized. She states that she yelled out ot her while she was feeling weak " I'm going to faint". Her then caught her while she was stooped over on the toilet and helped her down onto the ground. Her sates that the pt said "I'm going to " while she was being lifted to the floor. The does admit that the patient went silent for a few moments but did not notice any shaking and she did not suffer any bony trauma. The patient sexton snot have good recollection of the event or even stating that "I'm dying" . Admits to subjective warmth, cough productive of yellow sputum, occasional nausea, one episode of vomiting, one episode of diarrhea, and generally decreased appetite. Denies SOB, urinary symptoms, blood from any orifice, or chest pain. Her PCP is . Her neurologist is Dr. Ramos. 10/29/17 09:02 <Kacey Perez - Last Filed: 10/31/17 21:56> - General Chief Complaint: Syncope/Near Syncope Stated Complaint: SYNCOPE Time Seen by Provider: 10/29/17 08:58 Past History <David Skaggs - Last Filed: 10/29/17 13:13> - Past Medical History Anemia: No Asthma: No Cancer: No Cardiac Disorders: No CVA: No COPD: No CHF: No Dementia: No Diabetes: No GI Disorders: Yes (CONSTIPATION, HEMORRHOIDS, REDUNDANT COLON) Disorders: No HTN: No Hypercholesterolemia: Yes Liver Disease: No Psychiatric Problems: Yes (ANXIETY) Seizures: No Thyroid Disease: No - Surgical History Abdominal Surgery: No Appendectomy: No Cardiac Surgery: No Cholecystectomy: No Lung Surgery: No Neurologic Surgery: No Orthopedic Surgery: No - Immunization History Immunization Up to Date: Yes - Suicide/Smoking/Psychosocial Hx Smoking History: Never smoked Have you smoked in the past 12 months: No Number of Cigarettes Smoked Daily: 0 If you are a former smoker, when did you quit?: 50 YRS AGO Information on smoking cessation initiated: No Hx Alcohol Use: No Drug/Substance Use Hx: No Substance Use Type: None Hx Substance Use Treatment: No <Kacey Perez - Last Filed: 10/31/17 21:56> - Past Medical History Allergies/Adverse Reactions: Allergies Allergy/AdvReac Type Severity Reaction Status Date / Time No Known Allergies Allergy Verified 10/29/17 08:19 Home Medications: Ambulatory Orders Atorvastatin Ca [Lipitor] 20 mg PO HS 11/23/14 Pantoprazole Sodium [Protonix] 40 mg PO DAILY #20 tablet.dr 10/21/17 Ondansetron [Zofran Odt -] 4 mg SL TID PRN #21 od.tablet 10/29/17 Oseltamivir Phosphate [Tamiflu] 75 mg PO BID #10 capsule 10/29/17 Review of Systems - Review of Systems Constitutional: Yes: Chills, Fever HEENTM: No: Blurred Vision Respiratory: Yes: Cough, Productive cough. No: Shortness of Breath, Wheezing Cardiac (ROS): Yes: Syncope. No: Chest Pain, Irregular Heart Rate, Palpitations , Chest Tightness ABD/GI: Yes: Diarrhea, Nausea, Vomiting : No: Dysuria, Discharge <Kacey Perez - Last Filed: 10/31/17 21:56> *Physical Exam - Vital Signs Last Vital Signs Temp Pulse Resp BP Pulse Ox 99.1 F 66 20 122/63 97 10/29/17 08:19 10/29/17 08:19 10/29/17 08:19 10/29/17 08:19 10/29/17 08:19 <David Skaggs - Last Filed: 10/29/17 13:13> - Vital Signs Last Vital Signs Temp Pulse Resp BP Pulse Ox 99.1 F 66 20 122/63 97 10/29/17 08:19 10/29/17 08:19 10/29/17 08:19 10/29/17 08:19 10/29/17 08:19 - Physical Exam General Appearance: Yes: Nourished, Appropriately Dressed. No: Apparent Distress HEENT: positive: EOMI, JINNY, Normal ENT Inspection, Normal Voice, Pharynx Normal Neck: positive: Trachea midline, Normal Thyroid, Supple. negative: Tender, Rigid Respiratory/Chest: positive: Lungs Clear, Normal Breath Sounds. negative: Chest Tender, Respiratory Distress, Accessory Muscle Use Cardiovascular: positive: Regular Rhythm, Regular Rate Gastrointestinal/Abdominal: positive: Normal Bowel Sounds, Flat, Soft. negative : Tender Musculoskeletal: positive: Normal Inspection. negative: CVA Tenderness Extremity: positive: Normal Capillary Refill, Normal Inspection, Normal Range of Motion. negative: Tender Integumentary: positive: Normal Color, Dry, Warm Neurologic: positive: engraver picture II-XII NML intact, Fully Oriented, Alert, Normal Mood/ Affect, Normal Response, Motor Strength 5/5, Respond to painful stimul, Responsive, Finger to Nose, Other (No focal neurlogic sign, sensory deficit, or cerbellar signs. Has good patellar and tricep reflexes.). negative: EOM Palsy, Facial Droop, Numbness, Sensory Deficit, Confused, Disoriented, Depressed Affect <Kacey Perez - Last Filed: 10/31/17 21:56> ED Treatment Course - LABORATORY CBC & Chemistry Diagram: 10/29/17 08:42 10/29/17 08:42 - ADDITIONAL ORDERS Additional order review: Laboratory Results 10/29/17 10/29/17 10:59 08:42 Sodium 141 Potassium 4.0 Chloride 104 Carbon Dioxide 31 Anion Gap 6 L BUN 18 Creatinine 1.0 Creat Clearance w eGFR 54.35 Random Glucose 118 H Calcium 8.5 Total Bilirubin 0.3 AST 46 H ALT 57 Alkaline Phosphatase 94 Creatine Kinase 151 Creatine Kinase Index 0.6 CK-MB (CK-2) < 1.000 Troponin I < 0.02 Total Protein 7.4 Albumin 3.7 Urine Color Yellow Urine Appearance Clear Urine pH 5.0 D Ur Specific Gratis 1.032 Urine Protein Negative Urine Glucose (UA) Negative Urine Ketones Negative Urine Blood Negative Urine Nitrite Negative Urine Bilirubin Negative Urine Urobilinogen 2.0 H Ur Leukocyte Esterase Negative 10/29/17 08:45 Influenza Types A,B Antigen (ANEL) - Final Nasopharyngeal Swab - Final 10/29/17 08:42 RBC 4.90 MCV 90.8 MCHC 32.3 RDW 13.0 MPV 7.3 L Neutrophils % 85.9 H D Lymphocytes % 5.8 L D Monocytes % 7.5 Eosinophils % 0.4 D Basophils % 0.4 - Medications Given in the ED: ED Medications Discontinued Medications Generic Name Dose Route Start Last Admin Trade Name Martha PRN Reason Stop Dose Admin Acetaminophen 1,000 mg 10/29/17 09:33 10/29/17 09:41 Ofirmev Injection - IVPB 10/29/17 09:34 1,000 mg ONCE ONE Administration Oseltamivir Phosphate 75 mg 10/29/17 09:32 10/29/17 09:41 Tamiflu - PO 10/29/17 09:33 75 mg ONCE ONE Administration Sodium Chloride 1,000 ml 10/29/17 10:25 10/29/17 11:10 Normal Saline - IV 10/29/17 10:26 1,000 ml ONCE ONE Administration <David Skaggs - Last Filed: 10/29/17 13:13> - LABORATORY CBC & Chemistry Diagram: 10/29/17 08:42 10/29/17 08:42 <Kacey Perez - Last Filed: 10/31/17 21:56> Medical Decision Making - Medical Decision Making 71 year old female with history of vertigo and uri like symptoms s/p a few hours after a possible syncopal episode. It is questionable whether the patient actually syncopized as her states she was talking during most of the weakness episode. Head CT and CXR negative with labs WNL. Flu positive. Will DC with Tamiflu prescription and return precautions. 10/29/17 09:49 <Kacey Perez - Last Filed: 10/31/17 21:56> *DC/Admit/Observation/Transfer <David Skaggs - Last Filed: 10/29/17 13:13> <Kacey Perez - Last Filed: 10/31/17 21:56> Diagnosis at time of Disposition: Influenza B, Influenza - Discharge Dispostion Disposition: HOME Condition at time of disposition: Good - Prescriptions Prescriptions: Ondansetron [Zofran Odt -] 4 mg SL TID PRN #21 od.tablet PRN Reason: Nausea Oseltamivir Phosphate [Tamiflu] 75 mg PO BID #10 capsule - Referrals Referrals: Litzy Zuluaga MD [Primary Care Provider] - - Patient Instructions Printed Discharge Instructions: DI for Influenza -- Adult Additional Instructions: Activity as tolerated. Stay well hydrated, advance diet as tolerated avoiding dairy, spicy fatty foods, caffeine and alcohol. Blood tests, a urine test, and a CAT scan of the head showed no acute abnormalities, but you do have influenza B. Take Tamiflu as prescribed, take Zofran as prescribed as needed for nausea. Tylenol 1000 mg every 8 hours and/or ibuprofen 600 mg every 8 hours as needed for fever/pain. Continue your medications as previously prescribed by your physician. You should follow up with your primary doctor as soon as possible regarding today's emergency department visit. Return to the emergency department for any new or concerning symptoms, particularly persistent dizziness or weakness, high fevers or chills, difficulty breathing. - Post Discharge Activity
[2017-10-29 09:06] LABS: BASO % 0.4 % (0-2.0); EOS % 0.4 % (0-4.5); HEMATOCRIT 44.5 % (32.4-45.2); HEMOGLOBIN 14.4 GM/dL (10.7-15.3); LYMPH % 5.8 % (8-40); MCH 29.3 pg (25.7-33.7); MCHC 32.3 g/dl (32.0-36.0); MEAN CELL VOLUME 90.8 fl (80-96); MEAN PLT VOLUME 7.3 fl (7.5-11.1); MONO % 7.5 % (3.8-10.2); NEUT % 85.9 % (42.8-82.8); PLATELET COUNT 173 K/MM3 (134-434); WHITE BLOOD COUNT 6.1 K/mm3 (4.0-10.0)
[2017-10-29 09:26] LABS: ALBUMIN 3.7 g/dl (3.4-5.0); ANION GAP 6 (8-16); BLOOD UREA NITROGEN 18 mg/dL (7-18); CALCIUM 8.5 mg/dL (8.5-10.1); CHLORIDE 104 mmol/L (98-107); CO2 31 mmol/L (21-32); GLUCOSE,RANDOM 118 mg/dL (74-106); SGOT/AST 46 U/L (15-37); SGPT/ALT 57 U/L (12-78); SODIUM 141 mmol/L (136-145)
[2017-10-29 09:29] LABS: ALK PHOS 94 U/L (45-117); BILIRUBIN,TOTAL 0.3 mg/dL (0.2-1.0); TOT PROT 7.4 g/dl (6.4-8.2)
[2017-10-29] MEDS ORDERED: OSELTAMIVIR PHOSPHATE 75 MG CAPSULE PO ONE (09:32)
[2017-10-29] MEDS ORDERED: ACETAMINOPHEN 1000 MG/100 ML VIAL (NON FORMULARY) IVPB ONE (09:33)
[2017-10-29] MEDS ORDERED: ACETAMINOPHEN INJECTION 100 ML IVPB ONE (09:35)
[2017-10-29] MEDS ORDERED: OSELTAMIVIR PHOSPHATE 75 MG CAPSULE ONE (09:35)
[2017-10-29] MEDS ORDERED: SODIUM CHLORIDE 0.9% 1000 ML INFUS.BAG IV ONE (10:25)
--- NOTE | 2017-10-29 10:57 | EKG ---
Test Reason : Blood Pressure : / mmHG Vent. Rate : 082 BPM Atrial Rate : 082 BPM P-R Int : 140 ms QRS Dur : 070 ms QT Int : 338 ms P-R-T Axes : 067 005 111 degrees QTc Int : 394 ms NORMAL SINUS RHYTHM NONSPECIFIC T WAVE ABNORMALITY ABNORMAL ECG WHEN COMPARED WITH ECG OF 13-DEC-2016 09:26, NO SIGNIFICANT CHANGE WAS FOUND Confirmed by CAMELIA RICKS MD ([id number]) on 10/29/2017 10:56:43 AM Referred By: Confirmed By:CAMELIA RICKS MD
--- NOTE | 2017-10-29 11:14 | PDOC ---
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 Patient felt her typical near syncope symptoms beginning, called her for help, and he found her nearly unconscious and assisted her off of the toilet. There was no actual loss of consciousness or fall/injury, there was no chest pain or difficulty breathing or palpitations, she presents here feeling much better but with her ongoing URI symptoms. - Physicial Exam PE: 10/29/17 11:13 Temp 99.1, vitals otherwise normal Well-appearing and atraumatic Neurologically intact No murmurs or ectopy Lungs are clear - Medical Decision Making 10/29/17 11:13 Patient seen and evaluated with the resident. I agree with the overall evaluation, assessment, and management with the following summary of visit: 71-year-old female with history of vertigo/syncope presents with same in the setting of influenza-like illness. Slightly dehydrated, no cardiopulmonary complaints or findings. Labs are within normal limits, troponin is negative, influenza B is positive Check urinalysis IV fluid hydration, start Tamiflu chest x-ray normal We'll check CT head, dispo accordingly. In light of negative workup in the past and good follow-up, agrees with discharge plan and understands return criteria. 10/29/17 13:11 feels much better after hydration. ct head normal, ua normal. ambulating in ED steadily, vertigo improved, tolerating PO. Pt and at bedside agree with d/c plan on tamiflu and zofran, understand return criteria. discussed pmd follow-up and infectious precautions.
[2017-10-29 11:21] LABS: URINE APPEARANCE CLEAR; URINE BILIRUBIN NEGATIVE (NEGATIVE); URINE BLOOD NEGATIVE (NEGATIVE); URINE COLOR YELLOW; URINE GLUCOSE (UA) NEGATIVE (NEGATIVE); URINE KETONE NEGATIVE (NEGATIVE); URINE LEUK ESTERASE NEGATIVE (NEGATIVE); URINE NITRITE NEGATIVE (NEGATIVE); URINE PROTEIN NEGATIVE (NEGATIVE)
--- NOTE | 2017-11-01 07:59 | PDOC ---
Patient Follow-up (Call Back) - Post ED Follow - Up Condition at time of discharge: Good Disposition at time of original discharge: HOME Reason for Call Back: Abnwl. Microbiology (Urine cx shows lactose fermenting - bacilli 30,000-40,000 cfu/ml. Pt in ED with no urinary complaints, Vital signs stable, negative abdominal exam, and noted negative UA. Will await final report)
== END 2017-10-29 13:25 | disposition home or self-care (01) ==
LOC: JER 08:01
PROC: 3E033NZ Introduction of Analgesics, Hypnotics, Sedatives into Peripheral Vein, Percutaneous Approach (ICD-10-PCS; principal; 2017-10-29)
DX: J10.2 Influenza due to other identified influenza virus with gastrointestinal manifestations (principal); K21.9 Gastro-esophageal reflux disease without esophagitis; E78.00 Pure hypercholesterolemia, unspecified; F41.9 Anxiety disorder, unspecified
CPT/HCPCS: 36415; 70450-TC; 71045-TC; 80053; 81003; 82550; 82553; 84484; 85025; 87086; 87186; 87804; 93005; 93010; 99285-25

== ENCOUNTER 2019-12-21 19:18 | Emergency (ER) | payer OTHER, BC ==
[2019-12-21 19:46] VITALS: BP 169/87; PULSE 86; TEMP 98.9; BMI 22.7
--- NOTE | 2019-12-21 19:55 | PDOC ---
History of Present Illness - General Stated Complaint: COUGH/SOB Time Seen by Provider: 12/21/19 19:34 - History of Present Illness Initial Comments: 12/21/19 19:35 74 y/o F w/ + COVID 19 exposure. No CM Symptoms x3 days. Past History - Past Medical History Allergies/Adverse Reactions: Allergies Allergy/AdvReac Type Severity Reaction Status Date / Time No Known Allergies Allergy Verified 10/29/17 08:19 Home Medications: Ambulatory Orders Atorvastatin Ca [Lipitor] 20 mg PO HS 11/23/14 Pantoprazole Sodium [Protonix] 40 mg PO DAILY #20 tablet.dr 10/21/17 Ondansetron [Zofran Odt -] 4 mg SL TID PRN #21 od.tablet 10/29/17 Oseltamivir Phosphate [Tamiflu] 75 mg PO BID #10 capsule 10/29/17 Nitrofurantoin Monohyd/M-Cryst [Macrobid -] 100 mg PO BID #14 capsule 11/02/17 Anemia: No Asthma: No Cancer: No Cardiac Disorders: No CVA: No COPD: No CHF: No Dementia: No Diabetes: No GI Disorders: Yes (CONSTIPATION, HEMORRHOIDS, REDUNDANT COLON) Disorders: No HTN: No Hypercholesterolemia: Yes Liver Disease: No Psychiatric Problems: Yes (ANXIETY) Seizures: No Thyroid Disease: No - Surgical History Abdominal Surgery: No Appendectomy: No Cardiac Surgery: No Cholecystectomy: No Lung Surgery: No Neurologic Surgery: No Orthopedic Surgery: No - Immunization History Immunization Up to Date: Yes - Psycho Social/Smoking Cessation Hx Smoking History: Never smoked Have you smoked in the past 12 months: No Number of Cigarettes Smoked Daily: 0 If you are a former smoker, when did you quit?: 50 YRS AGO Hx Alcohol Use: No Drug/Substance Use Hx: No Substance Use Type: None Hx Substance Use Treatment: No Review of Systems - Review of Systems Constitutional: Yes: Chills, Malaise, Night Sweats. No: Fever Respiratory: Yes: Cough, Shortness of Breath *Physical Exam - Physical Exam General Appearance: Yes: Nourished, Appropriately Dressed. No: Apparent Distress HEENT: positive: Normal ENT Inspection Neck: positive: Trachea midline, Supple Respiratory/Chest: positive: Normal Breath Sounds. negative: Respiratory Distress, Crackles, Rales, Rhonchi, Stridor, Wheezing, Plerual Rub Medical Decision Making - Medical Decision Making 12/21/19 19:58 CXR clear as compared to prior report and film 12/21/19 19:59 Isolation for suspected COVID 19 Supportive care for Viral URI Discharge - Discharge Information Problems reviewed: Yes Clinical Impression/Diagnosis: Suspected 2019-nCoV infection Condition: Stable Disposition: HOME - Admission No - Follow up/Referral Referrals: Arash Lea MD [Staff Physician] - - Patient Discharge Instructions Patient Printed Discharge Instructions: [facility]Coronavirus Instructions, [facility] COVID-19 Isolation Protocol - Post Discharge Activity
== END 2019-12-21 20:07 | disposition home or self-care (01) ==
LOC: JER 19:18
DX: R05 Cough (principal); Z20.828 Contact with and (suspected) exposure to other viral communicable diseases
CPT/HCPCS: 71045-TC-FY; 99283-25

== ENCOUNTER 2021-09-17 05:19 | Emergency (ER) | payer OTHER, BC ==
[2021-09-17 06:23] VITALS: BP 157/68; PULSE 76; TEMP 97.7; BMI 22.7
== END 2021-09-17 09:59 | disposition home or self-care (01) ==
LOC: JER 05:19
DX: L03.011 Cellulitis of right finger (principal)
CPT/HCPCS: 93005; 93010; 99283-25

== ENCOUNTER 2021-09-18 22:58 | Observation (INO) | payer OTHER, BC ==
[2021-09-18 23:34] VITALS: BMI 20.3
[2021-09-19] MEDS ORDERED: CLINDAMYCIN 600MG PREMIX IVPB 600 MG/50 ML BAG IVPB ONE ×2 (00:25→03:28)
[2021-09-19] MEDS ORDERED: KETOROLAC TROMETHAMINE 15 MG/ML VIAL IVPUSH ONE (00:28)
[2021-09-19] MEDS ORDERED: IBUPROFEN 100 MG/5 ML UNIT DOSE CUPS ONE (03:27)
[2021-09-19] MEDS ORDERED: KETOROLAC TROMETHAMINE 30 MG/1 ML VIAL ONE ×2 (03:28→16:26)
[2021-09-19 03:30] LABS: BASO % 0.7 % (0-2.0); EOS % 0.6 % (0-4.5); HEMATOCRIT 43.5 % (32.4-45.2); LYMPH % 18.3 % (8-40); MCH 30.7 pg (25.7-33.7); MCHC 34.3 g/dl (32.0-36.0); MEAN CELL VOLUME 89.5 fl (80-96); MEAN PLT VOLUME 7.4 fl (7.5-11.1); MONO % 5.5 % (3.8-10.2); NEUT % 74.9 % (42.8-82.8); PLATELET COUNT 234 10^3/uL (134-434); RBC 4.87 M/mm3 (3.60-5.2); RDW 13.1 % (11.6-15.6); WHITE BLOOD COUNT 6.1 K/mm3 (4.0-10.0)
[2021-09-19 03:58] LABS: CALCIUM 9.3 mg/dL (8.5-10.1)
[2021-09-19 03:59] LABS: BLOOD UREA NITROGEN 19.6 mg/dL (7-18)
[2021-09-19 04:04] LABS: BILIRUBIN,TOTAL 0.5 mg/dL (0.2-1)
[2021-09-19] MEDS ORDERED: ACETAMINOPHEN 1000 MG/100 ML BAG IVPB ONE (05:15)
[2021-09-19] MEDS ORDERED: ACETAMINOPHEN INJECTION 100 ML IVPB ONE (05:23)
[2021-09-19] MEDS ORDERED: ITRACONAZOLE 100 MG CAPSULE PO SCH (10:00)
[2021-09-19] MEDS ORDERED: CLINDAMYCIN 600MG PREMIX IVPB 600 MG/50 ML BAG IVPB SCH (10:00)
[2021-09-19] MEDS ORDERED: CLINDAMYCIN PHOSPHATE 600 MG/4 ML VIAL ONE (11:01)
[2021-09-19] MEDS ORDERED: PIPERACILLIN/TAZOB 3.375 GM 3.375 GM in DEXTROSE 5%-WATER - 50 ML IVPB SCH (12:45)
[2021-09-19] MEDS: CEFTRIAXONE 1 GM in DEXTROSE 5%-WATER - 50 ML IVPB SCH (13:10)
[2021-09-19] MEDS ORDERED: CEFTRIAXONE 1 GM/50 ML BAG ONE (13:10)
[2021-09-19] MEDS: NYSTATIN 100000 UNIT/GM TOPICAL OINTMENT 15 GM TUBE TP SCH ×2 (14:53→21:20)
[2021-09-19] MEDS: KETOROLAC TROMETHAMINE 15 MG/ML VIAL IVPUSH PRN (16:27)
[2021-09-19] MEDS: ACETAMINOPHEN 1000 MG/100 ML BAG IVPB PRN (20:14)
[2021-09-19] MEDS ORDERED: MELATONIN 1 MG TABLET PO ONE (20:45)
[2021-09-20] MEDS: KETOROLAC TROMETHAMINE 15 MG/ML VIAL IVPUSH PRN ×3 (00:31→20:50)
[2021-09-20] MEDS ORDERED: MELATONIN 5 MG TABLETS PO ONE (02:45)
[2021-09-20] MEDS: ACETAMINOPHEN 1000 MG/100 ML BAG IVPB PRN (07:12)
[2021-09-20 08:37] LABS: HEMATOCRIT 43.9 % (32.4-45.2); HEMOGLOBIN 14.8 GM/dL (10.7-15.3); MCH 30.5 pg (25.7-33.7); MCHC 33.7 g/dl (32.0-36.0); MEAN CELL VOLUME 90.4 fl (80-96); MEAN PLT VOLUME 7.7 fl (7.5-11.1); PLATELET COUNT 204 10^3/uL (134-434); RBC 4.85 M/mm3 (3.60-5.2); RDW 13.1 % (11.6-15.6); WHITE BLOOD COUNT 5.2 K/mm3 (4.0-10.0)
[2021-09-20 08:57] LABS: BLOOD UREA NITROGEN 23.9 mg/dL (7-18); CALCIUM 8.9 mg/dL (8.5-10.1)
[2021-09-20] MEDS ORDERED: DEXTROSE 5%-WATER - 50 ML IVPB ONE (09:15)
[2021-09-20] MEDS ORDERED: cefTRIAXone SODIUM 1 GM VIAL ONE (09:15)
[2021-09-20] MEDS: CEFTRIAXONE 1 GM in DEXTROSE 5%-WATER - 50 ML IVPB SCH (09:59)
[2021-09-20] MEDS: NYSTATIN 100000 UNIT/GM TOPICAL OINTMENT 15 GM TUBE TP SCH ×2 (10:00→21:00)
[2021-09-20] MEDS ORDERED: oxyCODONE HCL 5 MG TABLET PO ONE (17:45)
[2021-09-20] MEDS ORDERED: ACETAMINOPHEN 325 MG TABLET (FP) PO ONE (17:45)
[2021-09-21] MEDS: KETOROLAC TROMETHAMINE 15 MG/ML VIAL IVPUSH PRN ×3 (03:51→18:59)
[2021-09-21] MEDS ORDERED: cefTRIAXone SODIUM 1 GM VIAL ONE (09:28)
[2021-09-21] MEDS ORDERED: DEXTROSE 5%-WATER - 50 ML IVPB ONE (09:29)
[2021-09-21] MEDS: PANTOPRAZOLE 20 MG TABLET PO SCH (09:34)
[2021-09-21] MEDS: CEFTRIAXONE 1 GM in DEXTROSE 5%-WATER - 50 ML IVPB SCH (09:35)
[2021-09-21] MEDS: NYSTATIN 100000 UNIT/GM TOPICAL OINTMENT 15 GM TUBE TP SCH ×2 (10:17→21:05)
[2021-09-21] MEDS ORDERED: LIDOCAINE HCL 2% (50ML VIAL) SQ ONE (16:15)
[2021-09-21] MEDS: SILVER SULFADIAZINE 1% TOP CREAM 50 GM JAR TP SCH (17:20)
[2021-09-22] MEDS: KETOROLAC TROMETHAMINE 30 MG/1 ML VIAL IVPUSH PRN ×2 (01:13→13:56)
[2021-09-22 05:22] VITALS: PULSE 78
[2021-09-22 09:25] LABS: BASO % 0.8 % (0-2.0); EOS % 2.5 % (0-4.5); HEMATOCRIT 45.3 % (32.4-45.2); HEMOGLOBIN 15.1 GM/dL (10.7-15.3); MCH 30.4 pg (25.7-33.7); MCHC 33.3 g/dl (32.0-36.0); MEAN CELL VOLUME 91.1 fl (80-96); MEAN PLT VOLUME 8.7 fl (7.5-11.1); MONO % 6.1 % (3.8-10.2); NEUT % 71.6 % (42.8-82.8); PLATELET COUNT 225 10^3/uL (134-434); RBC 4.97 M/mm3 (3.60-5.2); RDW 13.1 % (11.6-15.6); WHITE BLOOD COUNT 6.1 K/mm3 (4.0-10.0)
[2021-09-22] MEDS ORDERED: cefTRIAXone SODIUM 1 GM VIAL ONE (09:35)
[2021-09-22] MEDS ORDERED: DEXTROSE 5%-WATER - 50 ML IVPB ONE (09:35)
[2021-09-22 10:08] LABS: ALBUMIN 3.5 g/dl (3.4-5.0); BLOOD UREA NITROGEN 25.8 mg/dL (7-18); CALCIUM 9.1 mg/dL (8.5-10.1); MAGNESIUM 2.3 mg/dL (1.8-2.4)
[2021-09-22 10:11] LABS: CREATININE 0.9 mg/dL (0.55-1.3); PHOSPHOROUS 3.6 mg/dL (2.5-4.9)
[2021-09-22 10:12] LABS: BILIRUBIN,TOTAL 0.4 mg/dL (0.2-1); TOT PROT 7.3 g/dl (6.4-8.2)
[2021-09-22] MEDS: CEFTRIAXONE 1 GM in DEXTROSE 5%-WATER - 50 ML IVPB SCH (10:15)
[2021-09-22] MEDS: PANTOPRAZOLE 20 MG TABLET PO SCH (10:15)
[2021-09-22 10:52] LABS: PLATELET ESTIMATE NORMAL
[2021-09-22] MEDS: NYSTATIN 100000 UNIT/GM TOPICAL OINTMENT 15 GM TUBE TP SCH (12:23)
[2021-09-22 14:39] VITALS: BP 120/66; TEMP 97.5
[2021-09-22] MEDS: SILVER SULFADIAZINE 1% TOP CREAM 50 GM JAR TP SCH (15:30)
[2021-09-22] MEDS ORDERED: BISACODYL 5 MG TABLET.DR (FP) PO ONE (16:30)
== END 2021-09-22 20:33 | disposition home or self-care (01) ==
LOC: JER 22:58 → UNDOADMOB 09-19 00:37 → JERBED 09-19 00:37 → J7W 09-19 17:51 → J6S 09-20 16:53
PROVIDERS: ADMIT Internal Medicine; ATTEND Internal Medicine
PROC: 0HBQXZZ Excision of Finger Nail, External Approach (ICD-10-PCS; principal; 2021-09-19)
PROC: 3E03329 Introduction of Other Anti-infective into Peripheral Vein, Percutaneous Approach (ICD-10-PCS; 2021-09-19)
PROC: 3E033NZ Introduction of Analgesics, Hypnotics, Sedatives into Peripheral Vein, Percutaneous Approach (ICD-10-PCS; 2021-09-19)
PROC: 3E01329 Introduction of Other Anti-infective into Subcutaneous Tissue, Percutaneous Approach (ICD-10-PCS; 2021-09-19)
PROC: 3E03329 Introduction of Other Anti-infective into Peripheral Vein, Percutaneous Approach (ICD-10-PCS; 2021-09-19)
DX: L03.011 Cellulitis of right finger (principal); E78.5 Hyperlipidemia, unspecified; Z85.41 Personal history of malignant neoplasm of cervix uteri; Z90.721 Acquired absence of ovaries, unilateral; Z90.710 Acquired absence of both cervix and uterus
CPT/HCPCS: 11750; 36415; 73130-TC-RT-FY; 76882-TC-RT; 80048; 80053; 83735; 84100; 85025; 85027; 87102; 87210; 88108; 88305-TC; 88312-TC; 96365; 96372; 96375; 96376; 99285-25; C9803; G0378; J0131; U0003; U0005

== ENCOUNTER 2024-02-29 01:36 | Emergency (ER) | payer OTHER, BC ==
[2024-02-29 01:42] VITALS: BP 179/91; PULSE 85; RESP 18; TEMP 97.8; BMI 20.7
[2024-02-29] MEDS: FAMOTIDINE 10 MG TABLET PO ONE (02:20)
[2024-02-29] MEDS: DEXAMETHASONE SOD PHOSPHATE 10 MG/1 ML VIAL IM ONE (02:20)
[2024-02-29] MEDS ORDERED: FAMOTIDINE 20 MG TABLET ONE (02:23)
[2024-02-29] MEDS ORDERED: DEXAMETHASONE SOD PHOSPHATE 10 MG/1 ML VIAL ONE (02:23)
[2024-02-29] MEDS: DEXAMETHASONE SOD PHOSPHATE 4 MG/1 ML VIAL IVPUSH ONE (02:30)
[2024-02-29] MEDS: FAMOTIDINE 20 MG/50 ML IVPB 20 MG/50 ML MG IVPB ONE (02:30)
[2024-02-29] MEDS ORDERED: FAMOTIDINE 20 MG/50 ML IVPB 20 MG/50 ML MG IVPB ONE (02:32)
== END 2024-02-29 03:20 | disposition home or self-care (01) ==
LOC: JER 01:36
PROC: 3E033GC Introduction of Other Therapeutic Substance into Peripheral Vein, Percutaneous Approach (ICD-10-PCS; principal; 2024-02-29)
PROC: 3E033GC Introduction of Other Therapeutic Substance into Peripheral Vein, Percutaneous Approach (ICD-10-PCS; 2024-02-29)
PROC: 3E033GC Introduction of Other Therapeutic Substance into Peripheral Vein, Percutaneous Approach (ICD-10-PCS; 2024-02-29)
DX: R21 Rash and other nonspecific skin eruption (principal); L25.9 Unspecified contact dermatitis, unspecified cause
CPT/HCPCS: 99284-25; J1100